=== PATIENT | female | born 1970 | race African-American/Black ===

== ENCOUNTER 2019-12-15 20:58 | Emergency (ER) | payer SELFPAY ==
[2019-12-15 21:00] VITALS: BP 153/105; PULSE 101; RESP 20; TEMP 36.6; O2SAT 100
--- NOTE | 2019-12-15 21:38 | ED.GENADULT ---
HPI - General Adult General Chief complaint: Dental/Oral Stated complaint: dental issues Time Seen by Provider: 12/15/19 21:08 Source: patient Mode of arrival: ambulatory Limitations: no limitations History of Present Illness HPI narrative: Patient is a 49-year-old female who presents complaining of right upper dental pain x4 days. Patient reports she is visiting mother from [place]. Patient reports calling dentist and has an appointment on 12/22. Patient is here until 12/20. She reports taking Tylenol with limited relief. Patient cannot take NSAIDs because of gastric bypass. MD complaint: dental pain Related Data Allergies Allergy/AdvReac Type Severity Reaction Status Date / Time No Known Allergies Allergy Verified 12/15/19 21:04 Review of Systems Review of Systems: Narrative: CONSTITUTIONAL: Denies fever, chills, or sweats. EYES: Denies visual changes, redness, or discharge. ENT: Denies rhinorrhea, congestion, sore throat, or otalgia. Reports right upper dental pain CARDIOVASCULAR: Denies chest pain, palpitations, or edema. RESPIRATORY: Denies cough or dyspnea. GASTROINTESTINAL: Denies abdominal pain, nausea, vomiting, or diarrhea. GENITOURINARY: Denies dysuria or hematuria. SKIN: Denies rash or itching. MUSCULOSKELETAL: Denies back pain, joint pain, or myalgia. NEUROLOGIC: Denies headache, numbness, dizziness, or weakness. PSYCHIATRIC: Denies anxiety or depression. [facility] Surgical History Surgical History (Updated 12/15/19 @ 21:41 by TODD Smith) H/O gastric bypass Social History Social History (Updated 12/15/19 @ 21:41 by TODD Smith) Smoking status: Never smoker Alcohol intake: current Alcohol use details: occasionally Substance use: never Exam Narrative: Exam Narrative: GENERAL: Well-appearing, well-nourished, and in no acute distress. HEAD: Normocephalic, atraumatic. EYES: No redness or drainage. Conjunctiva are normal. ENT: Mucous membranes pink and moist. Multiple dental caries, chipped and broken teeth NECK: AROM. Supple. No lymphadenopathy. CHEST: No respiratory distress. Clear to auscultation. HEART: Regular rate and rhythm. No murmur appreciated. Normal peripheral pulses. EXTREMITIES: Normal range of motion. No edema. SKIN: Warm, dry, no rash. NEURO: No focal deficits. Alert and oriented x3. Gait steady. PSYCH: Normal affect. No signs of depression or anxiety. Course Vital Signs Vital signs: Vital Signs Temperature 36.6 C 12/15/19 21:00 Pulse Rate 101 H 12/15/19 21:00 Respiratory Rate 20 12/15/19 21:00 Blood Pressure 153/105 H 12/15/19 21:00 Pulse Oximetry 100 12/15/19 21:00 Temperature 36.6 C 12/15/19 21:00 Pulse Rate 101 H 12/15/19 21:00 Respiratory Rate 20 12/15/19 21:00 Blood Pressure 153/105 H 12/15/19 21:00 Pulse Oximetry 100 12/15/19 21:00 Reviewed. Patient has been instructed to follow-up with her PCP regarding her blood pressure. Medical Decision Making MDM Narrative Medical decision making narrative: Patient having dental pain likely related to poor oral hygeine. Patient reports dental appointment on 12/22. Patient to be started on penicillin at this time. Patient reports she is unable to take ibuprofen due to history of reported gastric bypass. Patient has no other complaints and is stable for discharge to home with outpatient follow up as scheduled. Differential Diagnosis Differential Diagnosis: Dental caries Vital Signs Vital Signs: Vital Signs Temperature 36.6 C 12/15/19 21:00 Pulse Rate 101 H 12/15/19 21:00 Respiratory Rate 20 12/15/19 21:00 Blood Pressure 153/105 H 12/15/19 21:00 Pulse Oximetry 100 12/15/19 21:00 Temperature 36.6 C 12/15/19 21:00 Pulse Rate 101 H 12/15/19 21:00 Respiratory Rate 12/15/19 21:00 Blood Pressure 153/105 H 12/15/19 21:00 Pulse Oximetry 100 12/15/19 21:00 Reviewed. Patient has been instructed to follow-up with her PCP regarding her bloo
== END 2019-12-15 22:10 | disposition home or self-care (01) ==
PROVIDERS: Emergency Provider Nurse Practitioner
DX: K02.9 Dental caries, unspecified (principal); Z98.84 Bariatric surgery status
CPT/HCPCS: 99283